=== PATIENT | female | born 1995 | race Caucasian/White ===

== ENCOUNTER 2017-02-16 15:30 | Emergency (ER) | payer MEDICAID ==
[~2017-02-16] VITALS: Ht 157.5 cm; Wt 70.0 kg
[2017-02-16] MEDS ORDERED: METHYLPREDNISOLONE SOD SUCC 125 MG/2 ML VIAL IV ONE (16:00)
[2017-02-16] MEDS ORDERED: EPINEPHRINE 1:1000 1 MG/ML AMP INJ ONE (16:00)
[2017-02-16] MEDS ORDERED: FAMOTIDINE 20MG/2ML VIAL IV ONE (16:00)
[2017-02-16 18:59] VITALS: BP 121/76
== END 2017-02-16 19:01 | disposition home or self-care (01) ==
LOC: ER 15:33
DX: T78.2XXA Anaphylactic shock, unspecified, initial encounter (principal); F12.10 Cannabis abuse, uncomplicated; R13.10 Dysphagia, unspecified; Y92.89 Other specified places as the place of occurrence of the external cause
CPT/HCPCS: 96372; 96374; 96375; 99291; J0171; J2930; J3490; Z7610